=== PATIENT | male | born 1990 | race Hispanic/Latino ===

== ENCOUNTER 2022-09-16 15:25 | Emergency (ER) | payer OTHER ==
[~2022-09-16] VITALS: Ht 167.6 cm; Wt 63.1 kg
[2022-09-16] MEDS ORDERED: traMADol 50 MG TAB PO ONE (15:50)
[2022-09-16 18:10] VITALS: BP 137/84; TEMP 97.3; O2SAT 99
== END 2022-09-16 18:27 | disposition home or self-care (01) ==
LOC: EDBD 15:25 → M ED 15:25
DX: S40.012A Contusion of left shoulder, initial encounter (principal); S20.211A Contusion of right front wall of thorax, initial encounter; V49.00XA Driver injured in collision with unspecified motor vehicles in nontraffic accident, initial encounter; Y92.410 Unspecified street and highway as the place of occurrence of the external cause